=== PATIENT | male | born 1955 | race Caucasian/White ===

== ENCOUNTER → 2020-12-06 | Outpatient (CLI) | payer MEDICARE ==
--- NOTE | 2020-12-06 12:42 | XR ---
EXAMINATION TYPE: XR hand complete RT DATE OF EXAM: 12/06/2020 COMPARISON: None HISTORY: Steel fragment in right hand TECHNIQUE: 3 view right hand FINDINGS: No acute fracture or dislocation is evident. Joint spaces appear preserved. Minimal degener ative change may be in the metacarpal phalangeal joint spaces. There is a radiopaque foreign body which appears to reside within the region dorsal to the trapezoid. IMPRESSION: 1. A metallic appearing foreign-body within the dorsal soft tissues posterior to the region of the t rapezoid
== END | disposition home or self-care (01) ==
LOC: RADXRMAIN 10:27
PROVIDERS: ATTEND Physical Medicine & Rehabilitation
DX: S60.851A Superficial foreign body of right wrist, initial encounter (principal)

== ENCOUNTER → 2022-02-03 | Outpatient (CLI) | payer MEDICARE ==
--- NOTE | 2022-02-04 01:27 | PN ---
PROGRESS NOTE HISTORY OF PRESENT ILLNESS: I am seeing this patient for a followup regarding obstructive sleep apnea. The patient is known to have ALEJA with an AHI of 22.4, moderate to severe in nature. The patient was using CPAP therapy. He saw me in my office approximately few months back and the patient was having difficulties in tolerating the mask. He was using the AirFit F30 fullface mask under the nose. He was on a CPAP pressure of 9 cm of water. He was still showing an apnea score of 6.3. He was averaging around 5.3 hours of CPAP use per night. Based on my evaluation in the office, I switched this patient to an APAP mode, minimum pressure of 4, maximum pressure of 8. I also asked him to come into the sleep center to be offered a different mask interface. On today's evaluation, the patient is doing well with the current CPAP settings. Based on a 1-week compliancy evaluation, the patient was found to be averaging around 6.5 hours of CPAP use per night and average pressure delivered by the machine is around 7.8 cm of water. His AHI is down to 2.3 and the leak is in order of 19 L/minute. As such, the patient's treatment is more successful on an APAP mode at lower pressure. We tried different mask interfaces also. PAST MEDICAL HISTORY: Chronic back pain, sleep apnea, hyperlipidemia, diverticulosis, depression, osteoarthritis, chronic anxiety, and carpal tunnel syndrome. MEDICATIONS: Include, 1. Lipitor 40 mg p.o. daily. 2. Nexium 40 daily. 3. Gabapentin 300 mg 3 times a day. 4. Omeprazole 40 mg p.o. daily. 5. Zoloft 100 mg p.o. daily. 6. Tamsulosin 0.4 mg p.o. daily. 7. Vitamin B12/folic acid supplements 1 tablet a day. REVIEW OF SYSTEMS: A 14-point review of system was done. Positive findings are mentioned in history of present illness. His current [place] score is 14. PHYSICAL EXAMINATION: VITAL SIGNS: BP is 124/77, pulse 70, respirations 16, temperature 96.9, saturation 99% on room air. GENERAL APPEARANCE: Calm, comfortable. HEAD: Atraumatic, normocephalic. NECK: Supple. No JVD. No goiter or neck mass. LUNGS: Diminished, otherwise clear. HEART: Sounds regular rate and rhythm. Normal S1, S2. No S3, S4. No murmurs. ABDOMEN: Soft, nontender. No organomegaly. EXTREMITIES: No edema. No cyanosis or clubbing. NEUROLOGIC: Awake and alert. There are no focal neurological deficits. PSYCHIATRIC: Negative for anxiety or depression. IMPRESSION: 1. Symptomatic mild severe obstructive sleep apnea. AHI of 22. Doing better on APAP at a pressure of 4 minimum, 8 maximum. Using AirFit F30 fullface mask. 2. Hyperlipidemia. 3. Depression. 4. Osteoarthritis. 5. Anxiety. 6. Chronic back pain. PLAN: 1. Keep APAP mode, pressure minimum of 4, maximum of 8. 2. Offer the patient a Simplus full-face mask, and AirFit F10 medium size full face mask. He is going to try both mask and let me know if this is something that he would like to use in the future. I checked the mask seal and the tolerability, which seemed to be quite appropriate and adequate here at the sleep center. We will proceed with ongoing treatment and the patient will see me back in few months' time for followup. MMODL / IJN: [id number] /
== END ==
LOC: SLEEP 13:06
PROVIDERS: ATTEND Internal Medicine Critical Care Medicine
DX: G47.33 Obstructive sleep apnea (adult) (pediatric) (principal); Z99.89 Dependence on other enabling machines and devices; E78.5 Hyperlipidemia, unspecified; F41.9 Anxiety disorder, unspecified; M54.50 Low back pain, unspecified; M19.90 Unspecified osteoarthritis, unspecified site; F32.A Depression, unspecified
CPT/HCPCS: 99211

== ENCOUNTER → 2023-12-23 | Outpatient (CLI) | payer MEDICARE ==
[2023-12-23 18:37] LABS: HCT 40.3 % (39.6-50.0); HGB 13.3 g/dL (13.0-17.0); MCV 97.1 FL (80.0-97.0); Mean Platelet Volume 11.3 FL (9.5-12.2); NRBC Per 100 WBC 0 X 10*3/uL (0.00-0.01); Platelet Count 184 X 10*3/uL (140-440); RBC 4.15 X 10*6/uL (4.40-5.60); RDW 13.5 % (11.5-14.5)
[2023-12-23 20:30] LABS: Blood Urea Nitrogen 25.2 mg/dL (9.0-27.0); Carbon Dioxide 21.4 mmol/L (21.6-31.8); Chloride 107 mmol/L (96-109); Potassium 4.2 mmol/L (3.5-5.5); Sodium 141 mmol/L (135-145)
== END | disposition home or self-care (01) ==
LOC: LABPAT 14:21
PROVIDERS: ATTEND Internal Medicine
CPT/HCPCS: 80051; 82565; 84520; 85027

== ENCOUNTER 2023-12-24 11:52 | Day surgery (SDC) | payer MEDICARE ==
[2023-12-21 14:37] VITALS: BMI 23.6
[~2023-12-24 11:52] MED LIST: ALPRAZolam 0.25 MG TAB PO PRN; ALPRAZolam 0.5 MG TAB PO PRN; HEPARIN SODIUM,PORCINE (1 ML) 2,500 UNIT in SODIUM CHLORIDE 0.9% 250 ML IRRIGATION PRN; HEPARIN SODIUM,PORCINE 10,000 UNIT in SODIUM CHLORIDE 0.9% 1,000 ML IRRIGATION PRN; NITROGLYCERIN SL TABS 0.4 MG TAB SUBLINGUAL PRN
[2023-12-24] MEDS: SODIUM CHLORIDE 0.9% 1,000 ML in EMPTY BAG 1 BAG IV SCH (13:11)
[2023-12-24] MEDS: IV FLUID CONTINUATION 1,000 ML IV ONE (13:13)
[2023-12-24] MEDS: LIDOCAINE 1% INJ 10MG/ML (20 ML MDV) SQ ONE ×2 (16:37→16:40)
[2023-12-24] MEDS: MIDAZOLAM 2 MG/2 ML VIAL IVP ONE (16:38)
[2023-12-24] MEDS: fentaNYL (PF) 50 MCG/ML 2 ML AMP IVP ONE (16:40)
[2023-12-24] MEDS: VERAPAMIL SYRINGE (5 MG/10 ML) INTRAARTER ONE (16:41)
--- NOTE | 2023-12-24 16:56 | P.CARDCATH ---
Description of Procedure: PROCEDURES PERFORMED: Left heart catheterization, bilateral coronary angiography, ultrasound guided arterial access INDICATION: Abnormal stress test CONSENT:I have discussed the risks, benefits and alternative therapies for the above-mentioned procedure and for both sedation/analgesia as well as necessary blood product administration, if indicated, as they pertain to this patient. The patient has indicated understanding and acceptance of the risks and procedures discussed. PROCEDURE: After the risks, benefits and alternatives of the above mentioned procedure explained in detail with the patient, informed consent was obtained. Patient was taken to the catheterization lab and prepped and draped in usual fashion. Ultrasound guidance was used to assess for arterial access. 1% lidocaine was used to anesthetize the right radial artery. A 6-Georgian sheath was placed in the right radial artery using modified Seldinger technique and ultrasound guidance. Left coronary angiography was performed with a 5-Georgian JL 3.5 catheter and right coronary angiography was performed with a 5-Georgian FR5 catheter in various views. A 5-Georgian FR5 catheter was inserted into the left ventricle and pressure measurements were obtained. The right radial sheath was removed and a TR band was placed with hemostasis achieved. The patient to lerated the procedure well. Patient was transported back to the post catheterization holding area in stable condition. Conscious Sedation: Patient was monitored under the direct supervision of myself for conscious sedation using Versed and fentanyl for a total duration of 12 minutes HEMODYNAMICS: 101/61 LV: 102/2, LVEDP 10 SELECTIVE CORONARY ARTERIOGRAPHY: LEFT MAIN: The left main is a large caliber vessel which bifurcates into the LAD and circumflex. There is no significant stenosis. LEFT ANTERIOR DESCENDING CORONARY ARTERY: LAD is a large caliber vessel which wraps around to the apex. There is no significant stenosis. LEFT CIRCUMFLEX CORONARY ARTERY: Left circumflex is a moderate caliber vessel without significant stenosis. RIGHT CORONARY ARTERY: The right coronary artery is a large caliber vessel which gives off a PDA and PLV branch and is the dominant vessel. There is no significant stenosis. FINAL IMPRESSION: 1. Normal coronary arteries as described above. 2. Normal left sided filling pressures PLAN: 1. Aggressive risk factor modification per most recent ACC/AHA guidelines. 2. Follow-up in the office in 1-2 weeks.
[2023-12-24] MEDS ORDERED: RX INFO: IV CONTRAST WAS GIVEN 1 EACH MISC MISCELLANE PRN (16:58)
[2023-12-24] MEDS: ASPIRIN 325 MG TAB PO STA (18:03)
[2023-12-24] MEDS: ATORVASTATIN 80 MG TAB PO STA (18:03)
[2023-12-24] MEDS: SODIUM CHLORIDE 0.9% 1,000 ML IV SCH (18:10)
[2023-12-24 19:26] VITALS: RESP 16; TEMP 97.8
[2023-12-24 21:26] VITALS: BP 130/85; PULSE 52
[2023-12-24 21:38] LABS: Basophils % (A) 0 %; Eosinophils # (A) 0.2 k/uL (0-0.7); Eosinophils % (A) 3 %; HCT 39.7 % (39.0-53.0); HGB 13.2 gm/dL (13.0-17.5); Lymphocytes % (A) 38 %; MCHC 33.3 g/dL (31.0-37.0); Mean Platelet Volume 8.4; Monocytes # (A) 0.4 k/uL (0-1.0); Monocytes % (A) 8 %; Neutrophils # (A) 2.5 k/uL (1.3-7.7); Neutrophils % (A) 48 %; Platelet Count 173 k/uL (150-450); RBC 4.14 m/uL (4.30-5.90); RDW 13.4 % (11.5-15.5); WBC 5.3 k/uL (3.8-10.6)
[2023-12-24 21:51] LABS: African American GFR (CKD) >90 (>60 ml/min/1.73 sqM); Anion Gap 3 mmol/L; Blood Urea Nitrogen 18 mg/dL (9-20); Calcium 8.8 mg/dL (8.4-10.2); Carbon Dioxide 23 mmol/L (22-30); Chloride 112 mmol/L (98-107); Glucose 80 mg/dL (74-99); Non-African American GFR(CKD) >90 (>60 ml/min/1.73 sqM); Potassium 4.4 mmol/L (3.5-5.1); Sodium 138 mmol/L (137-145)
== END 2023-12-24 23:47 | disposition home or self-care (01) ==
LOC: CATHCVL 11:52 → 6NMEDSUR 16:53 → CATHCVL 23:47
PROVIDERS: ATTEND Internal Medicine
CPT/HCPCS: 80048; 85025; 93458